=== PATIENT | male | born 1940 | race Caucasian/White ===

== ENCOUNTER 2019-04-07 14:49 | Inpatient (IN) ==
[2019-04-07] MEDS ORDERED: 0.9 % Sodium Chloride 1,000 ML IVC ONE ×2 (15:03→17:17)
[2019-04-07] MEDS ORDERED: Isovue-370 500 ML BOTTLE IVP ONE (15:10)
--- NOTE | 2019-04-07 15:18 | Emergency Department Note ---
Disposition Clinical Impression: PNA (pneumonia) Qualifiers: Pneumonia type: due to unspecified organism Laterality: unspecified laterality Lung location: unspecified part of lung Qualified Code(s): J18.9 - Pneumonia, unspecified organism Sepsis Qualifiers: Sepsis type: sepsis due to unspecified organism Sepsis acute organ dysfunction status: unspecified Qualified Code(s): A41.9 - Sepsis, unspecified organism Disposition: Admitted As Inpatient Condition: Fair [facility] Provider[facility] - Forms: ED Satisfaction Letter Time of Disposition: 18:53 General Adult HPI - General Chief complaint: ED Arrhythmia/Palpitations Stated complaint: Low BP Time Seen by Provider: 04/07/19 15:01 Source: patient, EMS Mode of arrival: EMS Limitations: no limitations Nursing Notes Reviewed: Yes Vital Signs Reviewed: Yes - History of Present Illness HPI Narrative: 78-year-old male that [place] [facility] [place] for [facility]. [facility] received 1 L of fluids at the [facility] and blood pressure remained 90/50 so they transferred him here. Patient did have a significant white count at the [facility]. Patient has a history of chronic kidney disease with a GFR below 40. However upon arrival patient had blood pressures that were different when compared between arms. Given patient's hypotension and atrial fibrillation as well as pain in his chest there was some concern that he was having an aortic dissection. A CTA was ordered emergently. Pain Scale: 0 - Related Data Allergies Allergy/AdvReac Type Severity Reaction Status Date / Time No Known Allergies Allergy Verified 04/07/19 15:07 Review of Systems: In addition to that documented in the HPI above, the additional ROS was obtained: Constitutional: Denies fevers Reports chills Eyes: Denies vision changes ENMT: Denies sore throat CV: Reports chest pain Resp: Reports SOB, cough GI: Denies vomiting or diarrhea : Denies painful urination MSK: Denies recent trauma Skin: Denies new rashes Neuro: Denies new numbness or tingling or weakness Endocrine: Denies unexpected weight loss Heme: Denies bleeding disorders Past Medical History - Past Medical History Attestation: Yes The following information was validated with the patient. Medical history: Reports: cancer, DVT, diabetes, GERD, hyperlipidemia, hypertension - Social History Smoking Status: Former smoker Alcohol use: Reports: none Drug use: Reports: none Physical Exam General: Drowsy but arousable. No acute distress. Well developed, well nourished. Head: atraumatic, normocephalic. ENT: No conjunctival injection, no scleral icterus. PERRLA. EOMI. Oropharynx non- erythematous. mucous membranes moist. Neuro: No focal deficits, no speech deficit, no facial droop, mentating well. BUE/BLE Str 5/5. Pulm: Lungs CTAB A/P. No wheezes, rales, ronchi. Cardio: Irregularly irregular. Chest not tender to palpation. Abd: Soft, non-distended. Normoactive bowel sounds. Non-tender to palpation. No guarding. Non rigid. Extremities: Radial pulses 2+ zachery, dorsalis pedis/posterior tibialis 1+ zachery. No LE edema. No cyanosis, clubbing. Skin: warm, dry, intact. No rashes. Psych: Appropriate mood and affect. Answers questions appropriately. Cooperative with exam. - General Limitations: no limitations General appearance: alert, in no apparent distress Course Vital Signs Temperature 98.5 F 04/07/19 14:55 Pulse Rate 117 04/07/19 14:55 Respiratory Rate 20 04/07/19 14:55 Blood Pressure 103/91 04/07/19 14:55 O2 Sat by Pulse Oximetry 98 04/07/19 14:55 Temperature 98.5 F 04/07/19 15:03 Pulse Rate 131 04/07/19 19:13 Respiratory Rate 20 04/07/19 19:13 Blood Pressure 123/67 04/07/19 19:13 O2 Sat by Pulse Oximetry 96 04/07/19 19:13 Oxygen Delivery Oxygen Delivery Nasal Cannula Medical Decision Making - [facility] Narrative Medical decision making narrative: 78M with HoTN and chest pain. Concern for aortic dissection, will obtain CTA. CTA did not demonstrate dissection, however, it did show multifocal PNA. [facility], 1L here, and will order a third liter. Additionally, pt will be given rocephin and zithromax and admitted to the hospitalist. BP improved with administration of fluids. Pt was admitted to Dr. Vizcaino, hospitalist, who agreed to accept the patient to his service. Results of the workup including any imaging and/or labwork was shared with the patient at bedside. Patient was given an opportunity to ask questions at bedside and all of their concerns were addressed. Patient verbalized understanding and agreement with plan of care. Pt was stable at time of disposition. - Medical Records Medical records reviewed: Yes I reviewed the patient's medical records. - Lab Data Lab results reviewed: Yes I reviewed the patient's lab results. Lab Results 04/07/19 04/07/19 Range/Units 16:03 16:45 Lactic Acid 2.3 H (0.5-2.2) mmol/L Urine Color Yellow (Yellow) Urine Clarity Clear (Clear) Urine pH 6.5 (5.0-8.0) pH Units Ur Specific [place] 1.012 (1.010-1.025) Urine Protein Negative (Neg-Trace) mg/dL Urine Glucose (UA) >=1000 H (Normal) mg/dL Urine Ketones Negative (Negative) mg/dL Urine Blood Negative (Negative) Urine Nitrite Negative (Negative) Urine Bilirubin Negative (Negative) Urine Urobilinogen Normal (Normal) mg/dL Ur Leukocyte Esterase Negative (Negative) Ur Culture Indicated? NO (NO) - Radiology Data Radiology results reviewed: Yes I reviewed the patient's radiology results. CT Dissection 04/07/19 16:43 IMPRESSION: No acute vascular findings. Multiple ground-glass nodular opacities within the lingula and left lower lobe are likely infectious. Recommend follow-up based on guidelines below. No acute intra-abdominal process. RECOMMENDATIONS: Fleischner Society guidelines for follow-up and management of incidentally detected subsolid pulmonary nodules: Multiple subsolid nodules > than or equal to 6 mm - [address] at 3-6 months. Subsequent management based on the most suspicious nodule(s). - Low risk patients include individuals with minimal or absent history of smoking and other known risk factors. - High risk patients include individuals with a history or smoking or known risk factors. Radiology 2017 http://pubs.rsna.org/doi/full/10.1148/[email or web address] D/ / 04/07/2019 17:06:51 Dayton Alberto MD / maxime Interpreting Provider: Dayton Alberto MD - EKG Data EKG #1 EKG attestation: Yes I reviewed and interpreted this EKG. EKG results narrative: Heart rate 126, rhythm atrial fibrillation, axis left. QRS 106, QTC 433, intervals within normal limits. Mild ST segment depression noted in leads V3 through V6, may be rate related. No other ST segment abnormalities noted. Attestation Statement - Attestation Attestation: I, Da Shields DO, examined this patient [id number] and my medical decision-making was reviewed with Dr. Ryanne Boykin Resident Physician. I agree with the documented findings, disposition and treatment plan as described except to the extent set forth below. I personally supervised and was present for the frederick/critical portions of the procedures completed by the resident documented below. Please see my progress notes for details.
--- NOTE | 2019-04-07 15:20 | Emergency Department Note ---
Disposition Clinical Impression: PNA (pneumonia) Qualifiers: Pneumonia type: due to unspecified organism Laterality: unspecified laterality Lung location: unspecified part of lung Qualified Code(s): J18.9 - Pneumonia, unspecified organism Sepsis Qualifiers: Sepsis type: sepsis due to unspecified organism Sepsis acute organ dysfunction status: unspecified Qualified Code(s): A41.9 - Sepsis, unspecified organism Disposition: Admitted As Inpatient Condition: Fair [facility]: [facility] [Primary Care Provider[facility] - Forms: ED Satisfaction Letter Time of Disposition: 19:05 General Adult HPI - General Chief complaint: ED Arrhythmia/Palpitations Stated complaint: Low BP Time Seen by Provider: 04/07/19 15:01 Source: patient, EMS Limitations: no limitations - History of Present Illness Pain Scale: 0 - Related Data Allergies Allergy/AdvReac Type Severity Reaction Status Date / Time No Known Allergies Allergy Verified 04/07/19 15:07 Past Medical History - Past Medical History Medical history: Reports: cancer, DVT, diabetes, GERD, hyperlipidemia, hypertension - Social History Smoking Status: Former smoker Alcohol use: Reports: none Drug use: Reports: none Physical Exam - General Limitations: no limitations General appearance: alert, in no apparent distress Course Vital Signs Temperature 98.5 F 04/07/19 14:55 Pulse Rate 117 04/07/19 14:55 Respiratory Rate 20 04/07/19 14:55 Blood Pressure 103/91 04/07/19 14:55 O2 Sat by Pulse Oximetry 98 04/07/19 14:55 Temperature 98.5 F 04/07/19 15:03 Pulse Rate 91 04/07/19 18:56 Respiratory Rate 19 04/07/19 18:56 Blood Pressure 96/57 04/07/19 18:56 O2 Sat by Pulse Oximetry 98 04/07/19 18:56 Oxygen Delivery Oxygen Delivery Nasal Cannula Medical Decision Making - Lab Data Lab Results 04/07/19 04/07/19 Range/Units 16:03 16:45 Lactic Acid 2.3 H (0.5-2.2) mmol/L Urine Color Yellow (Yellow) Urine Clarity Clear (Clear) Urine pH 6.5 (5.0-8.0) pH Units Ur Specific [place] 1.012 (1.010-1.025) Urine Protein Negative (Neg-Trace) mg/dL Urine Glucose (UA) >=1000 H (Normal) mg/dL Urine Ketones Negative (Negative) mg/dL Urine Blood Negative (Negative) Urine Nitrite Negative (Negative) Urine Bilirubin Negative (Negative) Urine Urobilinogen Normal (Normal) mg/dL Ur Leukocyte Esterase Negative (Negative) Ur Culture Indicated? NO (NO) Attestation Statement - Attestation Attestation: I, Da Shields DO, examined this patient [id number] and my medical decision-making was reviewed with Dr. Ryanne Boykin, Resident Physician. I agree with the documented findings, disposition and treatment plan as described except to the extent set forth below. I personally supervised and was present for the frederick/critical portions of the procedures completed by the resident documented below. Please see my progress notes for details. 78-year-old male presents emergency room for evaluation of generalized malaise, hypotension and feeling ill. Patient was seen at the [facility] earlier today and they evaluated him having several lab abnormalities but also hypotension that did not respond to initial fluid bolus. Patient has not had any described illness but has several family members who have sick contacts. Patient did feel chills overnight but never documented temperature. Patient was seen and evaluated and had a thorough evaluation including chest x-ray and labs at the [facility]. After that established patient was sent our facility with one IV and blood pressure in the 80s systolic still during transport. On arrival here the patient does appear to be slightly pale on presentation he is mentating answering questions mucous membranes are very dry. Lungs are clear heart is regular abdomen is soft no pulsatile masses or lesions. Extremities are normal with no signs of bruising swelling or contusion. Patient moves all 4 tremors without any difficulty and with purpose. Vital signs are checked again the patient's blood pressure continues to be labile. A second liter of fluid has been ordered and a second IV will be obtained. Sepsis evaluation will be completed with lactic acid and blood cultures here in the emergency department. Chest x-ray did not show any acute signs of infection urinalysis will be ordered as well. On physical exam there is no acute focal source of infection at this time and his vital signs otherwise stable outside of the hypotension. We have no other acute etiology to treated at this point outside a potential dehydration and viral syndrome. Patient will be monitored here in the emergency department until the admission process is determined. EKG was reviewed by myself and documented resident physician's note is stable atrial fibrillation with slightly tachycardic rate. Patient will also have CT angiography the chest abdomen and pelvis to rule out any other potential etiology and will definitively address potential pneumonia. Patient is informed of the plan is comfortable this time. Fluids will be given. Renal function from outside facility was addressed the patient does have a GFR 38 but the acuity of the presentation the concern for vascular related abnormality outweighs the risk of potential nephrotoxicity. Patient is otherwise stable. See detailed documentation the physical exam, medical intervention, medical decision-making disposition the resident physician's note. No critical care pad the patient's treatment course at this time. 1700 Patient is found a groundglass opacities in left lower basal lung. This is most likely the source to his elevated white blood cell count generalized malaise. Antibiotic regimen including azithromycin and Rocephin have been ordered at this time. Blood cultures lactic acid will be collected. A third liter of fluid will be given to complete the 30 mg/kg bolus. Patient has had this medication and fluid resuscitation provided over a long time frame secondary to his transfer from the [facility]. Patient will be monitored here in the emergency department until admission process is completed. Patient does meet criteria for sepsis but has fluid responsive blood pressure. No acute uncontrolled septic shock. 1900 Patient was discussed with the hospitalist Dr. waterman. Lengthy review the presentation symptoms were discussed at length. Patient was sleeping in the bed during the hypotensive events after the fluid boluses. Now the patient is awake his blood pressure is back up to 123 systolic over 67. Patient is otherwise in no distress and stable. Maintenance fluids have been started. Patient's lactic acid down trended from 3.9-2.3 with the fluid resuscitation here. Admission process to be established for sepsis secondary to pneumonia. Patient will be monitored here in the emergency department until admission process is completed.
[2019-04-07] MEDS ORDERED: cefTRIAXone 2,000 MG in Water for inj. (sterile) 20 ML IVP STA (17:16)
[2019-04-07] MEDS ORDERED: Azithromycin 500 MG in 0.9 % Sodium Chloride 250 ML IVPB ONE (17:16)
[2019-04-07 17:28] LABS: Bilirubin,Urine Negative (Negative); Blood,Urine Negative (Negative); Clarity,Urine Clear (Clear); Color,Urine Yellow (Yellow); Glucose,Urine (UA) >=1000 mg/dL (Normal); Ketones,Urine Negative (Negative); Leukocyte Esterase,Urine Negative (Negative); Nitrite,Urine Negative (Negative); PH,Urine 6.5 pH Units (5.0-8.0); Protein,Urine Negative (Neg-Trace); Specific Gravity,Urine 1.012 (1.010-1.025); Urobilinogen,Urine Normal (Normal)
[2019-04-07] MEDS ORDERED: 0.9 % Sodium Chloride 1,000 ML IVC SCH (19:00)
[2019-04-07] MEDS ORDERED: Ondansetron 4 MG/2 ML VIAL IVP PRN (20:04)
[2019-04-07] MEDS ORDERED: Acetaminophen 325 MG TABLET PO PRN (20:04)
[2019-04-07] MEDS ORDERED: Ipratropium/Albuterol Neb 3 ML IH PRN (20:05)
[2019-04-07] MEDS ORDERED: *HR* Dextrose 50 % in Water (Syg) 50 ML SYRINGE IVP PRN (20:39)
[2019-04-07] MEDS ORDERED: Dextrose Gel 15 GM/37.5 ML TUBE PO PRN ×2 (20:39)
[2019-04-07] MEDS ORDERED: D5% in Water 1,000 ML IVC PRN (20:48)
--- NOTE | 2019-04-07 20:51 | Internal Med History&Physical ---
Date of Encounter: 04/07/19 Time of Encounter: 20:50 Internal Medicine - H&P: HPI Chief complaint: malaise Admitted From: Home Plans for Post Hospital Care: Home History of present illness: Colby Jackson is a 78-year-old man with atrial fibrillation, hypertension and diabetes who was sent from the [facility] to our emergency room for evaluation of hypotension. He states that he woke up this morning with significant chills and generalized malaise that started through the night. He says prior to this he was feeling relatively well and had no complaints. He does admit to cough that is productive but denies pleuritic chest pain and fever. He later on called an ambulance to take him to the [place] where he was reportedly hypotensive with a systolic blood pressure in the 80s. He also had a lactate elevation greater than 3 in addition to her leukocyte count in the 20s so he was given 1 L of fluids and sent here. On arrival here he has had some hypotensive episodes with blood pressure systolic in the 80s and diastolic in the 50s but seemingly responds to fluid resuscitation. He was also tachycardic and seemed to be in atrial fibrillation with RVR. A repeat lactate done here was 2.3. He was given 2 L of fluids. Chest CT was done which was reviewed by me and did show groundglass opacities in the left lower lobe and mild consolidative changes. Blood cultures were obtained and empiric antibiotics started; he is admitted for further care. At the time of my assessment he says he reports feeling better than how he was earlier today. Vitals: Reviewed General: Well-developed man who appears asthenic lying in bed Skin: Warm and flushed. HEENT: Slightly dry mucous membranes. No conjunctivae pallor. Neck: No lymphadenopathy. No JVD. No carotid bruits. No palpable thyroid. Chest: Normal thoracic expansion. Coarse breath sounds in the left lower lung field. Heart: Tachycardic and irregularly irregular. Abdomen: Non-distended, soft and non-tender to palpation. No peritoneal dominique ction. Extremities: No clubbing, cyanosis or edema. No calf tenderness. Normal distal pulses. Neurological: Awake, alert and oriented to person, place and time. No focal deficits. Psych: Affect appropriate. Assessment/Plan 1. Severe sepsis syndrome secondary to Coumadin acquired pneumonia: As evidenced by hypotension, leukocytosis, tachycardia and lactic acid elevation which seemingly is responding well to volume resuscitation. He reported some respiratory symptoms and is found to have some consolidative changes on CT scan done. We will need to follow blood cultures; trend lactate clearance; send urine antigen testing. Provide symptomatic relief with nebulizer therapy as needed. Continue fluid resuscitation. Continue ceftriaxone and azithromycin empirically for now. 2. A. fib with RVR: Seemingly triggered by his septic state. We hope that his heart rate will improve with ongoing fluid resuscitation. Once his home medications are reconciled we will start his rate control agents. 3. Diabetes: He reports control with diet alone and is not on any medications. We will have him on Accu-Cheks. 4. DVT prophylaxis: He is already on anticoagulant therapy for his atrial fibrillation. Past Med Surg Social Fam HX - Past Medical History Medical history: cancer, DVT, diabetes, GERD, hyperlipidemia, hypertension Additional medical history: colon cancer. neuropathy - Past Surgical History Additional surgical history: left knee sx - Social History Smoking Status: Former smoker Alcohol use: none Drug use: none Internal Medicine - H&P: Meds Allergy/AdvReac Type Severity Reaction Status Date / Time No Known Allergies Allergy Verified 04/07/19 15:07 All Systems PM: A 10-system review of systems was performed and is negative for pertinent findings except as documented above in the HPI. Family history reviewed and found non-contributory. - Constitutional Vitals: Temp Pulse Resp BP Pulse Ox 98.5 F 131 20 98/67 96 04/07/19 15:03 04/07/19 19:13 04/07/19 20:25 04/07/19 20:25 04/07/19 19:13 Exam: . Internal Med - H&P Results - Labs Labs: Urine 04/07/19 Range/Units 16:45 Urine Color Yellow (Yellow) Urine Clarity Clear (Clear) Urine pH 6.5 (5.0-8.0) pH Units Ur Specific [place] 1.012 (1.010-1.025) Urine Protein Negative (Neg-Trace) mg/dL Urine Glucose (UA) >=1000 H (Normal) mg/dL - Impressions ITS Impressions CT Dissection 04/07/19 16:43 IMPRESSION: No acute vascular findings. Multiple ground-glass nodular opacities within the lingula and left lower lobe are likely infectious. Recommend follow-up based on guidelines below. No acute intra-abdominal process. RECOMMENDATIONS: Fleischner Society guidelines for follow-up and management of incidentally detected subsolid pulmonary nodules: Multiple subsolid nodules > than or equal to 6 mm - CT at 3-6 months. Subsequent management based on the most suspicious nodule(s). - Low risk patients include individuals with minimal or absent history of smoking and other known risk factors. - High risk patients include individuals with a history or smoking or known risk factors. Radiology 2017 http://pubs.rsna.org/doi/full/10.1148/[email or web address] D/ / 04/07/2019 17:06:51 Dayton Alberto MD / maxime Interpreting Provider: Dayton Alberto MD - Time Spent With Patient Total time spent is greater than 50% in coordination of care (as documented) at patient's floor/unit and/or counseling patient:
[2019-04-07 21:28] LABS: Basophils % 0.2 %; Eosinophils # 0.1 K/mcL (0.0-0.6); Eosinophils % 0.3 %; Hematocrit 40.3 % (37.5-50.1); Immature Granulocytes % 0.5 % (0-4); Lymphocytes # 2.9 K/mcL (0.6-4.6); Lymphocytes % 13.8 %; Mean Corpuscular HGB Conc 34.7 g/dL (31.6-35.5); Mean Corpuscular Hemoglobin 31.7 pg (28.0-33.3); Mean Corpuscular Volume 91.4 fL (83.0-100.0); Mean Platelet Volume 11.6 fL (9.4-12.4); Monocytes # 2.2 K/mcL (0.0-1.3); Monocytes % 10.7 %; Neutrophils # 15.5 K/mcL (1.6-8.9); Platelet Count 190 K/mcL (140-400); Red Blood Count 4.41 M/mcL (4.19-5.50); Red Cell Distribution Width 13.2 % (11.5-14.5); Segmented Neutrophils % 74.5 %; White Blood Count 20.8 K/mcL (4.3-11.1)
[2019-04-07 21:37] LABS: INR 1.8; Prothrombin Time 20.5 Seconds (9.4-12.1)
[2019-04-07 21:39] LABS: Activated Partial Thrombo Time 36.6 Seconds (26.0-36.0)
[2019-04-07] MEDS: Insulin LISPRO 300 UNITS/3 ML VIAL SQ SCH (21:44)
[2019-04-07 21:45] LABS: Platelet Estimate Normal (Normal); Reactive Lymphocytes Present (Not Present)
[2019-04-07 21:47] LABS: Alanine Aminotransferase 15 Units/L (7-52); Albumin 3.1 g/dL (3.5-5.7); Albumin/Globulin Ratio 1.5 (1.1-2.2); Alkaline Phosphatase 54 Units/L (34-104); Aspartate Amino Transferase 15 Units/L (13-39); BUN/Creatinine Ratio 15 (6-26); Bilirubin,Direct 0.3 mg/dL (0.0-0.2); Bilirubin,Indirect 0.7 mg/dL (0.0-1.2); Blood Urea Nitrogen 17 mg/dL (8-23); Calcium 8.2 mg/dL (8.6-10.3); Carbon Dioxide 23 mEq/L (23-29); Chloride 113 mEq/L (98-107); Globulin 2.1 g/dL (2.4-3.5); Glucose 80 mg/dL (70-105); Magnesium 1.6 mg/dL (1.6-2.6); Osmolality,Calculated 289 (280-300); Potassium 3.8 mEq/L (3.5-5.1); Sodium 139 mEq/L (136-145); Total Protein 5.2 g/dL (6.4-8.9); eGFR For African Americans > 60 (> 60); eGFR For Non-African Americans > 60 (> 60)
[2019-04-07] MEDS: Ringers Solution, Lactated 1,000 ML IVC SCH (21:47)
[2019-04-08] MEDS: Apixaban 5 MG TABLET PO SCH ×3 (01:39→20:01)
[2019-04-08 04:47] LABS: Basophils % 0.2 %; Eosinophils # 0.2 K/mcL (0.0-0.6); Eosinophils % 1.3 %; Hematocrit 36.8 % (37.5-50.1); Hemoglobin 12.5 g/dL (12.9-16.9); Immature Granulocytes % 0.5 % (0-4); Lymphocytes # 2.2 K/mcL (0.6-4.6); Lymphocytes % 16.2 %; Mean Corpuscular Volume 91.3 fL (83.0-100.0); Mean Platelet Volume 11.8 fL (9.4-12.4); Monocytes # 1.3 K/mcL (0.0-1.3); Monocytes % 9.7 %; Neutrophils # 9.7 K/mcL (1.6-8.9); Platelet Count 160 K/mcL (140-400); Red Blood Count 4.03 M/mcL (4.19-5.50); Red Cell Distribution Width 13.2 % (11.5-14.5); Segmented Neutrophils % 72.1 %; White Blood Count 13.4 K/mcL (4.3-11.1)
[2019-04-08 04:55] LABS: BUN/Creatinine Ratio 15 (6-26); Blood Urea Nitrogen 15 mg/dL (8-23); Calcium 8.5 mg/dL (8.6-10.3); Carbon Dioxide 23 mEq/L (23-29); Chloride 116 mEq/L (98-107); Glucose 130 mg/dL (70-105); Osmolality,Calculated 291 (280-300); Potassium 3.7 mEq/L (3.5-5.1); Sodium 139 mEq/L (136-145); eGFR For African Americans > 60 (> 60); eGFR For Non-African Americans > 60 (> 60)
[2019-04-08] MEDS: Ringers Solution, Lactated 1,000 ML IVC SCH (05:54)
[2019-04-08] MEDS: cefTRIAXone 1,000 MG in Water for inj. (sterile) 10 ML IVP SCH (08:43)
--- NOTE | 2019-04-08 10:05 | Internal Med Progress Note ---
Hospitalist Progress Note - Encounter Date of Encounter: 04/08/19 Time of Encounter: 10:02 - Subjective Interval History: Feeling better this morning. Says that prior to admission, had fevers and chills but denied shortness of breath or cough denies pain anywhere else. - Exam Vitals: Temp Pulse Resp BP Pulse Ox 98.4 F 68 16 115/71 97 04/08/19 07:41 04/08/19 07:41 04/08/19 07:41 04/08/19 07:41 04/08/19 05:05 Exam: General: Ill-appearing and in no acute distress HEENT: No erythema of posterior pharynx. No exudates. Lymphatics: No mandibular or cervical lymphadenopathy Cardiovascular: RRR. No murmurs. No chest wall tenderness. Lungs: Focal rhonchi left lower lobe. Regular chest rise. Abdomen: Non-tender. No rebound or gaurding. Nl bowel sounds. Extremities: No edema. 2+ pulses radial and pedal pulses Skin: No rahses, abrasions, or contusions. Nl cap refill. Psych: Nl attention. 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 5/5 strength. Sensation to light touch and pinprick intact. - Assessment and Plan (1) Sepsis Current Visit: Yes Status: Acute (2) Community acquired bilateral lower lobe pneumonia Current Visit: Yes Status: Acute (3) Atrial fibrillation Current Visit: Yes Status: Acute (4) Diabetes Current Visit: Yes Status: Acute (5) Lung nodules Current Visit: Yes Status: Acute DVT Prophylaxis: NOAC - Summary of Assessment and Plan Summary of Assessment and Plan: Severe Sepsis Community Acquired Pneumonia Pulmonary nodules Patient with history of past pneumonias and diabetes presents with fevers and chills and found to be in severe sepsis on admission (tachycardia, tachypnea, le ukocytosis, lactate 2.3), focal left lower lobe rhonchi on exam, and chest imaging with concern for an infectious pulmonary nodules. -Source likely lungs Pulmonary imaging underwhelming but no other source identified UA clear and denies abdominal pain, diarrhea, nausea and vomiting, neck stiffness, headache -Markedly improved with IV antibiotics and IVF -Says he has had recurrent pneumonia. 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 - HgA1c - [facility] Internal Medicine: Result - Labs CBC & Chem 7: 04/08/19 03:41 04/08/19 03:41 Labs: Short CBC 04/07/19 04/08/19 Range/Units 21:04 03:41 WBC 20.8 H 13.4 H (4.3-11.1) K/mcL Hgb 14.0 12.5 L D (12.9-16.9) g/dL Hct 40.3 36.8 L (37.5-50.1) % Plt Count 190 160 (140-400) K/mcL Neutrophils # 15.5 H 9.7 H (1.6-8.9) K/mcL BMP 04/07/19 04/08/19 21:04 03:41 Sodium 139 139 Potassium 3.8 3.7 Chloride 113 H 116 H Carbon Dioxide 23 23 BUN 17 15 Creatinine 1.14 1.00 Glucose 80 130 H Calcium 8.2 L 8.5 L Liver Function 04/07/19 Range/Units 21:04 Total Bilirubin 1.0 (0.3-1.0) mg/dL Direct Bilirubin 0.3 H (0.0-0.2) mg/dL AST 15 (13-39) Units/L ALT 15 (7-52) Units/L Alkaline Phosphatase 54 (34-104) Units/L Albumin 3.1 L (3.5-5.7) g/dL Urine 04/07/19 Range/Units 16:45 Urine Color Yellow (Yellow) Urine Clarity Clear (Clear) Urine pH 6.5 (5.0-8.0) pH Units Ur Specific [place] 1.012 (1.010-1.025) Urine Protein Negative (Neg-Trace) mg/dL Urine Glucose (UA) >=1000 H (Normal) mg/dL - ABG Interpretation ABG results: PT/INR, D-dimer PT 20.5 Seconds (9.4-12.1) H 04/07/19 21:04 - Impressions Impressions CT Dissection 04/07/19 16:43 IMPRESSION: No acute vascular findings. Multiple ground-glass nodular opacities within the lingula and left lower lobe are likely infectious. Recommend follow-up based on guidelines below. No acute intra-abdominal process. RECOMMENDATIONS: Fleischner Society guidelines for follow-up and management of incidentally detected subsolid pulmonary nodules: Multiple subsolid nodules > than or equal to 6 mm - CT at 3-6 months. Subsequent management based on the most suspicious nodule(s). - Low risk patients include individuals with minimal or absent history of smoking and other known risk factors. - High risk patients include individuals with a history or smoking or known risk factors. Radiology 2017 http://pubs.rsna.org/doi/full/10.1148/radiol.9939984976 D/ / 04/07/2019 17:06:51 Dayton Alberto MD / maxime Interpreting Provider: Dayton Alberto MD Echocardiogram 04/07/19 23:05 Impressions: LVEF 55%. Normal LV chamber size, wall thickness and function. Indeterminate diastolic function. Normal right ventricular structure and function. No evidence of pulmonary hypertension. No significant valvular dysfunction. Left Ventricular Wall Motion: Rest Echo Findings All wall segments showed normal motion. Findings: Study Quality * Technically sub-optimal due to poor echocardiographic windows. ECG Findings * Atrial fibrillation. Left Ventricle * LVEF 55%. * Normal LV chamber size, wall thickness and function. * Indeterminate diastolic function. Right Ventricle * Normal right ventricular structure and function. Left Atrium * Mildly dilated left atrium. Right Atrium * Normal right atrial size. Interatrial Septum * Interatrial septum not well evaluated. Aortic Valve * Aortic valve not well visualized. * Grossly, mildly sclerotic aortic valve leaflets. * No aortic regurgitation. * No aortic stenosis. Mitral Valve * Normal mitral valve structure and function. * No mitral regurgitation. * No mitral stenosis. Tricuspid Valve * Normal tricuspid valve structure and function. * Trace tricuspid regurgitation. * No evidence of pulmonary hypertension. Pulmonic Valve * Pulmonic valve not well visualized. Aorta * Normally sized aortic root. Pericardium * The pericardium appears normal. IVC * Normal IVC dimensions and inspiratory collapse. Pulmonary Artery * Pulmonary artery not well visualized. Consult Discharge Plan - Plan [facility]errals: [facility] [Primary Care Provider] - (1) Sepsis Qualifiers: Sepsis type: sepsis due to unspecified organism Sepsis acute organ dysfunction status: unspecified Qualified Code(s): A41.9 - Sepsis, unspecified organism
[2019-04-08] MEDS: Insulin LISPRO 300 UNITS/3 ML VIAL SQ SCH ×4 (10:27→21:58)
[2019-04-08 13:43] LABS: Estimated Average Glucose 114 mg/dl
[2019-04-08] MEDS: Azithromycin 500 MG in D5% in Water 250 ML IVPB SCH (17:35)
[2019-04-09 02:36] LABS: Hematocrit 41.4 % (37.5-50.1); Mean Corpuscular HGB Conc 34.8 g/dL (31.6-35.5); Mean Corpuscular Hemoglobin 31.7 pg (28.0-33.3); Mean Corpuscular Volume 91.2 fL (83.0-100.0); Mean Platelet Volume 11.5 fL (9.4-12.4); Platelet Count 188 K/mcL (140-400); Red Blood Count 4.54 M/mcL (4.19-5.50); Red Cell Distribution Width 12.8 % (11.5-14.5); White Blood Count 13.5 K/mcL (4.3-11.1)
[2019-04-09 02:37] LABS: Hemoglobin 14.4 g/dL (12.9-16.9)
[2019-04-09 02:56] LABS: BUN/Creatinine Ratio 22 (6-26); Blood Urea Nitrogen 18 mg/dL (8-23); Calcium 9.5 mg/dL (8.6-10.3); Carbon Dioxide 24 mEq/L (23-29); Chloride 107 mEq/L (98-107); Glucose 138 mg/dL (70-105); Osmolality,Calculated 290 (280-300); Potassium 3.5 mEq/L (3.5-5.1); Sodium 138 mEq/L (136-145); eGFR For African Americans > 60 (> 60); eGFR For Non-African Americans > 60 (> 60)
[2019-04-09] MEDS: Insulin LISPRO 300 UNITS/3 ML VIAL SQ SCH ×4 (07:54→22:04)
[2019-04-09] MEDS: Apixaban 5 MG TABLET PO SCH ×2 (07:57→22:05)
[2019-04-09] MEDS: cefTRIAXone 1,000 MG in Water for inj. (sterile) 10 ML IVP SCH (07:58)
[2019-04-09] MEDS ORDERED: *HR* Metoprolol 5 MG/5 ML VIAL IVP ONE (08:15)
--- NOTE | 2019-04-09 08:48 | Internal Med Progress Note ---
Hospitalist Progress Note - Encounter Date of Encounter: 04/09/19 Time of Encounter: 08:31 - Subjective Interval History: Denies shortness of breath this morning but feeling fatigued. Did not get good sleep. Uses trazodone intermittently in the past. Flipped into atrial fibrillation with RVR this morning. Apparently not on any rate control agents a patient. Medication reconciliation needs to be completed. - Exam Vitals: Temp Pulse Resp BP Pulse Ox 98.1 F 106 16 139/95 98 04/09/19 07:14 04/09/19 07:14 04/09/19 07:14 04/09/19 07:14 04/09/19 07:14 Exam: General: Ill-appearing and in no acute distress HEENT: No erythema of posterior pharynx. No exudates. Lymphatics: No mandibular or cervical lymphadenopathy Cardiovascular: Tachycardic and irregular. No murmurs. No chest wall tenderness. Lungs: Focal rhonchi left lower lobe. Regular chest rise. Abdomen: Non-tender. No rebound or gaurding. Nl bowel sounds. Extremities: No edema. 2+ pulses radial and pedal pulses Skin: No rahses, abrasions, or contusions. Nl cap refill. Psych: Nl attention. A&Ox3 Neuro: assisted living associate II-XII intact. 5/5 strength. Sensation to light touch and pinprick intact. - Assessment and Plan (1) Sepsis Current Visit: Yes Status: Acute (2) Community acquired bilateral lower lobe pneumonia Current Visit: Yes Status: Acute (3) Atrial fibrillation Current Visit: Yes Status: Acute (4) Diabetes Current Visit: Yes Status: Acute (5) Lung nodules Current Visit: Yes Status: Acute DVT Prophylaxis: NOAC - Summary of Assessment and Plan Summary of Assessment and Plan: Severe Sepsis Community Acquired Pneumonia Pulmonary nodules Patient with history of past pneumonias and diabetes presents with fevers and chills and found to be in severe sepsis on admission (tachycardia, tachypnea, leukocytosis, lactate 2.3), focal left lower lobe rhonchi on exam, and chest imaging with concern for an infectious pulmonary nodules. -Source likely lungs Pulmonary imaging underwhelming but no other source identified UA clear and denies abdominal pain, diarrhea, nausea and vomiting, neck stiffness, headache -Markedly improved with IV antibiotics and IVF -Says he has had recurrent pneumonia. Some concern for aspiration -Slight bump in leukocytosis today and tachycardic with atrial fibrillation with RVR. We will keep on IV antibiotics today. 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 Otherwise stable. Apparently patient is not on rate control agent outpatient. - Metoprolol 5 mg IV push - 12.5 mg metoprolol oral twice a day - Continue home Apixaban Essential Hypertension CAD s/p Past Stent Had PCI in the past in [place]. Does not recall year but not recent. On chronic Plavix. No hx of systolic HF. On Lisinopril for HTN. Given starting metoprolol will hold Lisinopril - may not need both. - 12.5 mg metoprolol oral twice a day - Home Plavix NIDDM Type II Diet controlled per patient but poor control inpatient. HgA1c 5.6. Hyperglycemia and patient may just be due to infection. - [facility] Internal Medicine: Result - Labs CBC & Chem 7: 04/09/19 01:56 04/09/19 01:56 Labs: Short CBC 04/09/19 Range/Units 01:56 WBC 13.5 H (4.3-11.1) K/mcL Hgb 14.4 D (12.9-16.9) g/dL Hct 41.4 (37.5-50.1) % Plt Count 188 (140-400) K/mcL [facility] 04/09/19 01:56 Sodium 138 Potassium 3.5 Chloride 107 Carbon Dioxide 24 BUN 18 Creatinine 0.83 Glucose 138 H Calcium 9.5 - ABG Interpretation ABG results: PT/INR, D-dimer PT 20.5 Seconds (9.4-12.1) H 04/07/19 21:04 - Impressions Impressions Echocardiogram 04/07/19 23:05 Impressions: LVEF 55%. Normal LV chamber size, wall thickness and function. Indeterminate diastolic function. Normal right ventricular structure and function. No evidence of pulmonary hypertension. No significant valvular dysfunction. Left Ventricular Wall Motion: Rest Echo Findings All wall segments showed normal motion. Findings: Study Quality * Technically sub-optimal due to poor echocardiographic windows. ECG Findings * Atrial fibrillation. Left Ventricle * LVEF 55%. * Normal LV chamber size, wall thickness and function. * Indeterminate diastolic function. Right Ventricle * Normal right ventricular structure and function. Left Atrium * Mildly dilated left atrium. Right Atrium * Normal right atrial size. Interatrial Septum * Interatrial septum not well evaluated. Aortic Valve * Aortic valve not well visualized. * Grossly, mildly sclerotic aortic valve leaflets. * No aortic regurgitation. * No aortic stenosis. Mitral Valve * Normal mitral valve structure and function. * No mitral regurgitation. * No mitral stenosis. Tricuspid Valve * Normal tricuspid valve structure and function. * Trace tricuspid regurgitation. * No evidence of pulmonary hypertension. Pulmonic Valve * Pulmonic valve not well visualized. Aorta * Normally sized aortic root. Pericardium * The pericardium appears normal. IVC * Normal IVC dimensions and inspiratory collapse. Pulmonary Artery * Pulmonary artery not well visualized. Consult Discharge Plan - Plan [facility]errals: [facility] [Primary Care Provider] - (1) Sepsis Qualifiers: Sepsis type: sepsis due to unspecified organism Sepsis acute organ dysfunction status: unspecified Qualified Code(s): A41.9 - Sepsis, unspecified organism
[2019-04-09] MEDS ORDERED: traZODone 50 MG TABLET PO PRN (09:03)
[2019-04-09] MEDS ORDERED: CefTRIAXone 1,000 MG VIAL ONE (09:18)
[2019-04-09] MEDS ORDERED: Pregabalin 75 MG CAPSULE PO ONE (15:48)
[2019-04-09] MEDS: Azithromycin 500 MG in D5% in Water 250 ML IVPB SCH (18:05)
[2019-04-10 05:21] LABS: Hematocrit 46.7 % (37.5-50.1); Mean Corpuscular HGB Conc 34.9 g/dL (31.6-35.5); Mean Corpuscular Hemoglobin 30.6 pg (28.0-33.3); Mean Corpuscular Volume 87.8 fL (83.0-100.0); Mean Platelet Volume 11.6 fL (9.4-12.4); Platelet Count 260 K/mcL (140-400); Red Blood Count 5.32 M/mcL (4.19-5.50); Red Cell Distribution Width 13.1 % (11.5-14.5); White Blood Count 14.2 K/mcL (4.3-11.1)
[2019-04-10 05:33] LABS: Hemoglobin 16.3 g/dL (12.9-16.9)
[2019-04-10 05:46] LABS: BUN/Creatinine Ratio 17 (6-26); Blood Urea Nitrogen 17 mg/dL (8-23); Calcium 10.2 mg/dL (8.6-10.3); Carbon Dioxide 26 mEq/L (23-29); Chloride 105 mEq/L (98-107); Glucose 95 mg/dL (70-105); Osmolality,Calculated 289 (280-300); Potassium 3.4 mEq/L (3.5-5.1); Sodium 139 mEq/L (136-145); eGFR For African Americans > 60 (> 60); eGFR For Non-African Americans > 60 (> 60)
[2019-04-10 09:22] VITALS: BP 111/76
[2019-04-10] MEDS: Insulin LISPRO 300 UNITS/3 ML VIAL SQ SCH ×2 (09:31→11:36)
[2019-04-10] MEDS: cefTRIAXone 1,000 MG in Water for inj. (sterile) 10 ML IVP SCH (10:17)
[2019-04-10] MEDS: Apixaban 5 MG TABLET PO SCH (10:18)
--- NOTE | 2019-04-10 10:23 | Electrocardiograph Report ---
[address] [address] Test Date: 2019-04-08 Pat Name: Colby Jackson Department: 111 Room: 2NE20 Gender: M Protocol Officer: Raw : 1940 Requested By: Darron Joseph Order Number: [id number] Reading MD: Yessica Gonzalez Measurements Intervals [place] Rate: 89 P: [place]: 0 QRS: -29 QRSD: 114 T: 129 QT: 365 QTc: 412 Interpretive Statements ATRIAL FIBRILLATION BORDERLINE LEFT AXIS DEVIATION [QRS AXIS < -20] MODERATE INTRAVENTRICULAR CONDUCTION DELAY [110+ ms QRS DURATION] ST DEVIATION AND MODERATE T-WAVE ABNORMALITY, CONSIDER LATERAL ISCHEMIA [-0.1+ mV T WAVE IN I/aVL/V5/V6] Electronically Signed On 04-10-2019 10:21:00 EDT by Yessica Gonzalez
--- NOTE | 2019-04-10 10:34 | Discharge Summary ---
- NOTES TO OUTPATIENT PROVIDER Notes to Outpatient Provider: PResented with hyotension, dx with pna. Discharging on antibitics for total of 7 days. Also adding metoprolol for the A.fib as her had A.Fib with RVR Orders not resulted at time of discharge: Pending orders 04/07/19 16:03 Culture,Blood [BC] Stat Date of Encounter: 04/10/19 Time of Encounter: 09:00 - Discharge Diagnosis (1) Sepsis Priority: Primary Status: Acute Qualifiers: Sepsis type: sepsis due to unspecified organism Sepsis acute organ dysfunction status: unspecified Qualified Code(s): A41.9 - Sepsis, unspecified organism (2) Community acquired bilateral lower lobe pneumonia Priority: Secondary Status: Acute (3) Atrial fibrillation Priority: Secondary Status: Acute Qualifiers: Atrial fibrillation type: chronic Qualified Code(s): I48.2 - Chronic atrial fibrillation (4) Diabetes Priority: Secondary Status: Acute Qualifiers: Diabetes mellitus type: type 2 Diabetes mellitus correction insulin use: without correction use Diabetes mellitus complication status: without complication Qualified Code(s): E11.9 - Type 2 diabetes mellitus without complications (5) Lung nodules Priority: Secondary Status: Acute Hospital course: Mr. Jackson is a 78 year old male with a past medical history significant for atrial fibrillation, hypertension, CAD, presented to the hospital because of the hypotension. Patient was diagnosed with sepsis, diagnosed with pneumonia on CT scan, started on ceftriaxone and azithromycin for pneumonia. Patient improved with IV antibiotics. He was to be discharged yesterday but then developed atrial fibrillation with RVR. Of note, history of atrial fibrillation. Metoprolol was added to control the heart rate. At this point, patient is currently in atrial fibrillation but heart rate is in 80s. We will be dis charging the patient on metoprolol 12.5 mg. He will also be discharged on levofloxacin for 5 more days for the pneumonia. Plan discussed with the patient was agreeable to the plan. Patient is being discharged in stable condition. - Time Spent with Patient Total time spent providing and/or coordinating discharge services: 25 minutes - Discharge Medications Prescriptions: New levoFLOXacin [Levofloxacin] 750 mg PO DAILY 5 Days #5 tablet Metoprolol [Lopressor] 12.5 mg PO BID #30 tablet Continued Pregabalin [Lyrica] 150 mg PO BID Atorvastatin Calcium [Lipitor] 80 mg PO HS Apixaban [Eliquis] 5 mg PO BID Pantoprazole Sodium 40 mg PO BID Clopidogrel Bisulfate [Plavix] 75 mg PO DAILY Lisinopril [Zestril] 5 mg PO DAILY traZODone [TraZODone] 50 mg PO HS BuPROPion SR (12 HR) [Wellbutrin SR] 200 mg PO BID Budesonide/Formoterol 160/4.5 [Symbicort 160/4.5] 2 puff IH BIDR Home Medications: Apixaban [Eliquis] 5 mg PO BID 04/09/19 [History] Atorvastatin Calcium [Lipitor] 80 mg PO HS 04/09/19 [History] BuPROPion SR (12 HR) [Wellbutrin SR] 200 mg PO BID 04/09/19 [History] Budesonide/Formoterol 160/4.5 [Symbicort 160/4.5] 2 puff IH BIDR 04/09/19 [History] Clopidogrel Bisulfate [Plavix] 75 mg PO DAILY 04/09/19 [History] Lisinopril [Zestril] 5 mg PO DAILY 04/09/19 [History] Pantoprazole Sodium 40 mg PO BID 04/09/19 [History] Pregabalin [Lyrica] 150 mg PO BID 04/09/19 [History] traZODone [TraZODone] 50 mg PO HS 04/09/19 [History] Metoprolol [Lopressor] 12.5 mg PO BID #30 tablet 04/10/19 [Rx] levoFLOXacin [Levofloxacin] 750 mg PO DAILY 5 Days #5 tablet 04/10/19 [Rx] Allergies/Adverse Reactions: Allergy/AdvReac Type Severity Reaction Status Date / Time No Known Allergies Allergy Verified 04/07/19 15:07 Date of admission: 04/07/19 20:03 [facility] care physician: [facility] Consults: 04/08/19 10:07 Consult to Speech Therapy [CONS] Routine Comment: Evaluate, develop and implement POC Reason for Consult: recurrent PNA, concern for aspiration Call Completed: No - Constitutional Vitals: Temp Pulse Resp BP Pulse Ox 97.9 F 108 16 111/76 95 04/10/19 09:21 04/10/19 09:21 04/10/19 09:21 04/10/19 09:21 04/10/19 05:17 Exam: General: Alert and oriented, no acute distress. HEENT: No erythema of posterior pharynx. No exudates. Lymphatics: No mandibular or cervical lymphadenopathy Cardiovascular: Hearted normal, irregular.. No murmurs. No chest wall tenderness. Lungs: Lungs clear to auscultation, nonlabored breathing. Abdomen: Non-tender. No rebound or gaurding. Nl bowel sounds. Extremities: No edema. 2+ pulses radial and pedal pulses Skin: No rahses, abrasions, or contusions. Nl cap refill. Psych: Nl attention. 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 5/5 strength. Sensation to light touch and pinprick intact. - Patient Status Disposition: Home, Self-Care Condition: Fair Overall status at discharge: patient is progressing back to baseline - Discharge Instructions Follow Up With: [facility] [Primary Care Provider] - - Diet and Activity Activity: increase activity as tolerated Diet: advance to your usual diet
[2019-04-10] MEDS ORDERED: FLU Vac QV 19-20 (6Month+)/PF 0.5 ML SYRINGE IM ONE (11:22)
--- NOTE | 2019-04-11 09:18 | Electrocardiograph Report ---
[address] [address] Test Date: 2019-04-07 Pat Name: Colby Jackson Department: EXAM8 Room: 2NE20 Gender: M Lance Crewmember: : 1940 Requested By: Da Shields Order Number: [id number] Reading MD: Mansoor Stein Measurements Intervals [place] Rate: 126 P: [place]: QRS: -29 QRSD: 106 T: 161 QT: 299 QTc: 433 Interpretive Statements Atrial fibrillation Borderline left axis deviation Borderline repolarization abnormality Electronically Signed On 04-11-2019 9:16:31 EDT by Mansoor Stein
== END 2019-04-10 12:45 | disposition home or self-care (01) | DRG 871 ==
LOC: EMEROOARM 14:49 → 2NENU 14:49 → SUATTDRO 20:03 → 2NENU 20:45
PROVIDERS: ADMIT Pharmacist; ATTEND Internal Medicine